=== PATIENT | male | born 1975 | race Caucasian/White ===

== ENCOUNTER → 2019-01-03 07:52 | Outpatient (CLI) | payer OTHER, SELFPAY ==
[2019-01-03 07:47] VITALS: BMI 28.5
--- NOTE | 2019-01-03 07:54 | RAD_ITS ---
STUDY: X-RAY - LUMBAR SPINE REASON FOR EXAM: Male, 43 years old. injury last thursday, lower back pain w/some numbness in leg TECHNIQUE: 5 view(s) of the lumbar spine were obtained. COMPARISON: November 01, 2014 FINDINGS: Normal lumbar lordosis. There is multilevel endplate spondylosis of the lumbar vertebrae. There is multi-level degenerative disc disease with multi-level disc space narrowing. The soft tissue structures are unremarkable. RAD/L/S Spine Min 4 Views IMPRESSION: Degenerative changes of the spine. Electronically Signed: Armando Murrell MD at 8:18 EDT Tel , Service support ,
== END ==
PROVIDERS: Family Provider Family Medicine; PCP Family Medicine; Referring Provider Physician Assistant Surgical; Visit Provider Physician Assistant Surgical
DX: S39.012A Strain of muscle, fascia and tendon of lower back, initial encounter (principal); M54.16 Radiculopathy, lumbar region
CPT/HCPCS: 72110

== ENCOUNTER → 2019-01-08 08:48 | Outpatient (CLI) | payer OTHER, SELFPAY ==
[2019-01-04 08:35] VITALS: BMI 29.7
--- NOTE | 2019-01-08 08:52 | MRI_ITS ---
STUDY: MRI LUMBAR SPINE WITHOUT CONTRAST REASON FOR EXAM: Male, 43 years old. low back pain R leg pain after tripping backwards at work 12/29/18 TECHNIQUE: Standardized fat and water weighted pulse sequences were obtained in the sagittal and axial planes. COMPARISON: CR Lumbar Spine Jan 03 2019 FINDINGS: T12-L1: Normal endplates. Normal disc height, hydration and morphology. Normal bilateral facet joints. Normal central canal and bilateral lateral recesses. Normal bilateral intervertebral neural foramina. Normal lumbar lordosis. There is no substantial scoliosis. L1-2: Normal endplates. Normal disc height, hydration and morphology. Normal bilateral facet joints. Normal central canal and bilateral lateral recesses. Normal bilateral intervertebral neural foramina. L2-3: Normal endplates. Normal disc height, hydration and morphology. Normal bilateral facet joints. Normal central canal and bilateral lateral recesses. Normal bilateral intervertebral neural foramina. L3-4: Normal endplates. Normal disc height, hydration and morphology. Normal bilateral facet joints. Normal central canal and bilateral lateral recesses. Normal bilateral intervertebral neural foramina. L4-5: There is minimal disc space narrowing and endplate spondylosis. There is no significant disc herniation, central canal or foraminal stenosis. L5-S1: There is moderate disc space narrowing and endplates spondylosis. There is a mild disc osteophyte complex with posterior annular fissure and mild facet arthropathy without significant central canal stenosis. There is mild bilateral foraminal stenosis. Normal visualized sacral ala. Normal visualized paraspinous soft tissue structures. MRI/Spine Lumbar (Routine) IMPRESSION: L5/S1: Mild bilateral foraminal stenosis. Electronically Signed: Armando Murrell MD at 9:02 EDT Tel , Service support ,
== END ==
PROVIDERS: Family Provider Family Medicine; PCP Family Medicine; Referring Provider Physician Assistant Surgical; Visit Provider Physician Assistant Surgical
DX: M54.16 Radiculopathy, lumbar region (principal); S39.012A Strain of muscle, fascia and tendon of lower back, initial encounter; X58.XXXA Exposure to other specified factors, initial encounter; Y93.9 Activity, unspecified; Y92.9 Unspecified place or not applicable; Y99.9 Unspecified external cause status
CPT/HCPCS: 72148

== ENCOUNTER 2019-01-17 07:30 | Outpatient (RCR) | payer OTHER, SELFPAY ==
[2019-01-03 07:47] VITALS: BMI 28.5
--- NOTE | 2019-01-03 11:28 | HP.PTEVAL ---
Patient's Visit Information JOSUÉ ORDOÑEZ is a 43 year old M referred to Physical Therapy by JOSE Verduzco with a diagnosis of Lumbar Strain, Radiculopathy. Date of Evaluation: 01/03/19 Physical Therapist: Allegra Valenzuela DPT - Visit Plan Frequency: 2-3x /Week Duration: 2 Weeks Plan: Neutral Spine- Postural education-centralization- modalities. 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 Starting that night the right leg started to hurt and traveled to his back. Now the right leg is numb when he sits for to long. Feels the back pain is progressively worse but the leg pain is better. Had x-rays today- did not give him any medication to take. Can return to work tomorrow with lots of restrictions. Patient reports his back feels like someone is in their twisting it. Worst: 07/28 Agg: sitting, standing, laying down. Eases: laying on his belly or getting up Best: 04/27. Describes the pain as twisting and if he does something sudden he feels a sharp pain. Getting dressed is the most difficult and his put his socks and shoes on. He has chrones so can't take a steroid dose pack. Sleep: couple of hours- gets up and goes downstairs into the reclyner- can sit for about 30 min then he needs to get up and move. 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 Does wear a back belt. Has been there 2 years. Has never really had low back problems. PMHx: chrones, hernia repair repair 1997. Meds: Gabapentin (restless leg), Lomodel - Objective Posture: poor in sitting and standing- moves around a lot and does not ever get comfortable. Gait: antalgic- leans to the left to get off the right LE- slow taylor. ROM: Lumbar: decreased by 90% in all directions due to pain, Hip/Knee/Ankle: WNL. Strength: Right Ankle: 4-/5, PF: 4-/5, Knee: 4-/5, Hip: 4/5 throughout- Core: poor. Flex: HS: severe, Gastroc: severe. Special Test: dural signs on right positive. Sensation: WNL. Assessment challenging due to signficant pain - Goals Goal 1:: Patient will be I with HEP and progression Goal Time Frame: 4-6 Weeks Goal 2:: Patient will report 0/10 pain for 1 week Goal Time Frame: 4-6 Weeks Goal 3:: Patient will maintain proper posture t/o tx session to demo increased core s/s. Goal Time Frame: 4-6 Weeks - Rehabilitation Potential Physical Therapy Diagnosis: Patient presents with hypomobility- he has decreased ROM, strength and muscular endurance leading to abnormal gait pattern and decreased ability to perform ADL's. Rehabilitation Potential: Poor - Anticipated Interventions Therapeutic Exercise to Include: Strength training, Endurance training, Body mechanics, Postural training, Flexibilty training, Gait and locomotor training, Passive ROM, Active ROM, Dynamic Lumbar Stabilization, Josse Exercises For the Purpose of:: To improve muscle performance and motor function TENS: Yes Cryotherapy (ice pack, ice massage): Yes Thermo therapy (hot pack): Yes Ultrasound (thermal/non thermal): Yes Thank you for the opportunity to evaluate your patient. For Medicare and Medicare HMO plans, please review the plan of care and approve it. It will need to be FAXED BACK to us at [phone] for Medicare purposes. For Medicare only, by signing this I certify the plan of care. Please let me know if there are questions or concerns regarding this plan of care. Physician Signature: Date:
--- NOTE | 2019-02-18 08:29 | HP.PT.NRP ---
HP - Discharge Summary (1) - Patient Information JOSUÉ ORDOÑEZ was seen in my office for initial evaluation on 01/03/19. The following Plan of Care was established for this patient: Initial Frequency: 2-3x /Week Initial Duration: 2 Weeks - Anticipated Interventions Therapeutic Exercise to Include: Strength training, Endurance training, Body mechanics, Postural training, Flexibilty training, Gait and locomotor training, Passive ROM, Active ROM, Dynamic Lumbar Stabilization, Josse Exercises For the Purpose of:: To improve muscle performance and motor function TENS: Yes Cryotherapy (ice pack, ice massage): Yes Thermo therapy (hot pack): Yes Ultrasound (thermal/non thermal): Yes This patient was last seen in our office . Pertinent comments regarding their Physical therapy will appear below: Patient has not attended physical therapy in over 30 days and is appropriate for discharge. Follow up with MD as appropriate. At this point I will be discontinuing this patient from physical therapy. I would be happy to see this patient again in the future if found appropriate by the physician. Thank you! Allegra Valenzuela DPT
== END 2019-01-17 19:00 | disposition home or self-care (01) ==
LOC: PT 07:30
PROVIDERS: Family Provider Family Medicine; PCP Family Medicine; Referring Provider Physician Assistant; Visit Provider Physician Assistant
DX: S39.012D Strain of muscle, fascia and tendon of lower back, subsequent encounter (principal); M54.16 Radiculopathy, lumbar region
CPT/HCPCS: 97035; 97110; 97162

== ENCOUNTER → 2020-02-15 10:56 | Outpatient (CLI) | payer OTHER, BC, SELFPAY ==
[2019-03-17 16:45] VITALS: BMI 27.3
--- NOTE | 2020-02-15 11:07 | MRI_ITS ---
STUDY: MRI LEFT KNEE REASON FOR EXAM: Medial knee pain, injury 12/08/2019. TECHNIQUE: Standardized fat and water weighted pulse sequences were obtained in all 3 orthogonal planes. COMPARISON: None. FINDINGS: There may be a very small vertical tear of the inferior articular surface of the posterior horn of the medial meniscus, identified only on a single slice (proton density sagittal image 13). Normal hyaline cartilage of the medial femorotibial compartment. Normal medial femoral condyle and tibial plateau. Normal medial collateral ligamentous complex (MCL). Normal distal semimembranosus, gracilis and semitendinosus tendons. Normal lateral meniscus. Normal hyaline cartilage of the lateral femorotibial compartment. Normal lateral femoral condyle and tibial plateau. Normal proximal tibiofibular articulation. Normal lateral collateral (fibular) ligament. Normal popliteus tendon. Normal biceps femoris tendon. There is a small anterior cruciate ligament cyst (T2 coronal images 13, 14). Normal posterior cruciate ligament (PCL). Normal congruent patellofemoral articulation. Normal hyaline cartilage of the patellofemoral compartment. Normal medial and lateral patellar retinaculum. Normal visualized quadriceps tendon. Normal patellar tendon. Normal Hoffa''s fat pad. There is a small joint effusion. There is a thin medial patellar plica. There is a small lobulated ganglion cyst at the medial aspect of the distal posterior cruciate ligament (T2 sagittal image 11) measuring 0.9 cm in length. The otherwise visualized osseous structures are unremarkable. MRI/Lower Ext Joint Only (Routine) IMPRESSION: There may be a very small medial meniscal tear, identified only on a single slice. Small joint effusion. Small ganglion cyst adjacent to the distal posterior cruciate ligament. No demonstrated ligamentous sprain. Electronically Signed: Brett Scott MD at 12:00 EDT Tel , Service support ,
== END ==
PROVIDERS: PCP Family Medicine; Referring Provider Family Medicine; Visit Provider Family Medicine
DX: S83.92XA Sprain of unspecified site of left knee, initial encounter (principal); X58.XXXA Exposure to other specified factors, initial encounter; Y93.9 Activity, unspecified; Y99.9 Unspecified external cause status
CPT/HCPCS: 73721

== ENCOUNTER → 2020-06-12 14:35 | Outpatient (CLI) | payer OTHER, SELFPAY ==
[2020-06-12 14:22] VITALS: BMI 29.0
--- NOTE | 2020-06-12 14:35 | RAD_ITS ---
STUDY: X-RAY - LEFT KNEE REASON FOR EXAM: Left knee pain. TECHNIQUE: 4 view(s) of the knee. COMPARISON: None. FINDINGS: Normal visualized distal femur. Normal visualized proximal tibia and fibula. Normal proximal tibiofibular articulation. Normal medial femorotibial compartment. Normal lateral femorotibial compartment. There is very mild lateral subluxation of the patella. The soft tissue structures are unremarkable. RAD/Knee 4 or More Views IMPRESSION: Very mild lateral subluxation of the patella. Electronically Signed: Brett Scott MD at 8:22 EDT Tel , Service support ,
== END ==
LOC: HPRAD 14:35
PROVIDERS: PCP Family Medicine; Referring Provider Orthopaedic Surgery; Visit Provider Orthopaedic Surgery
DX: M25.562 Pain in left knee (principal)
CPT/HCPCS: 73564

== ENCOUNTER 2020-08-15 07:43 | Day surgery (SDC) | payer OTHER, BC, SELFPAY ==
[2020-06-12 14:22] VITALS: BMI 29.0
[2020-07-13 09:38] VITALS: BMI 29.0
[2020-08-15] VITALS (8 sets, daily range): BP systolic 99–127; BP diastolic 63–80; PULSE 58–95; RESP 16–18; TEMP 36–36.5; O2SAT 91–97; BMI 31.2
[2020-08-15] MEDS: Lactated Ringers 1,000 ML 100 ML IV ×2 (08:20→11:06)
--- NOTE | 2020-08-15 08:20 | DCINST_ITS ---
Discharge Diet: No Restrictions - Toe-touch weightbearing operative extremity, brace may be unlocked while seated 0 to 30 degrees, brace locked in extension during ambulation and at night, follow-up on Thursday for dressing change and brace adjustment with Niko Wayt, may get incision wet after that time, call with increased pain numbn Discharge Activity: May Not Drive May shower in (days): 1 Ice area for (Minutes): 20 - Every hour while awake. Weight Bearing Status: Weight bearing as tolerated Keep extremity elevated above heart level: Operative Extremity Call your doctor if your incision/area has: Continuous Slow Oozing, Sudden Increased Bleeding, Increased Pain/ Swelling, Increased Redness, Foul Smelling Discharge Call your doctor if you observe: Fever of 101 or Higher, Coldness, Increased Pain, Numbness or Tingling, Change in Color, Calf discomfort Allergies/Adverse Reactions: Allergies cortisone Allergy (Verified 08/15/20 08:18) Nausea nausea and h.a., insomnia ibuprofen Allergy (Verified 08/15/20 08:18) Swelling mushroom Allergy (Verified 08/15/20 08:18) Swelling Medications to take at Discharge gabapentin 600 mg tablet 600 mg PO TID 06/12/20 multivitamin 1 tab PO DAILY 06/12/20 Oxycodone [Oxyir] 5 mg PO Q4H PRN PRN 5 Days #60 tablet 08/15/20 The following prescriptions were given: Oxycodone [Oxyir] 5 mg PO Q4H PRN PRN 5 Days #60 tablet PRN Reason: Pain Transmission Status: Sent to [facility] Primary Care Physician: Behzad Solares III, MD [Primary Care Provider] - Test Results: Test results from this visit will be discussed in further detail at your follow- up appointment, if applicable. Please Follow Up With: Jess Bartlett, DO - [phone]
--- NOTE | 2020-08-15 08:20 | PCM.OPRPT ---
Report of Operation Date of Procedure: 08/15/20 Pre-Operative Diagnosis: left acl tear, medial meniscus tear Post-Operative Diagnosis: same Surgery/Procedure Performed:: salk, acl reconstruction with graftlink allograft leadership program internship: John Marquez Type of Anesthesia:: General Anesthesiologist: Raul Miranda Specimen's removed: tt- 65 min Estimated Blood Loss (mL): min Fluids Replaced: 1000ml lr Description of Procedure: Preop note Patient is a 44-year-old male who sustained a hyperextension injury to his left knee with continued pain and instability despite conservative treatment including bracing and therapy. Patient states left knee is quite unstable and painful when it and it feels like it gives out on him. On physical exam in our office we noted that he had a positive Daly's and a positive drawer anterior drawer. His MRI shows a intrasubstance medial meniscus tear as well as a questionable ACL tear combined with his physical exam is most likely an ACL tear and there is a couple of the cuts on the anterior aspect the lateral aspect where it appears at the mid the ACL has pulled off of the tibial insertion and healed and with some scar tissue. All this was discussed with the family. Risk benefits and alternatives were discussed with family. Risk include but not limited to blood loss, blood clot, infection, neurovascular G, failure procedure, loss of life and loss of limb. Patient aware like proceed with left knee arthroscopy appears in acute Operative note Patient seen and examined preoperative holding area left knee was marked. Patient brought to the operating placed upon the operating table. 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 We did a preop evaluation of his left knee a positive pivot shift was grossly abnormal. The left leg was prepared in standard technique after tourniquet was placed on his upper thigh. All bony promises well-padded SCDs placed on his contralateral limb. We marked our anterior lateral anteromedial portal placement. Began our diagnostic arthroscopy to confirm her physical exam diagnosis. Pain anterior lateral portal with 11 blade may visualize patellofemoral joint which was unremarkable with the moved to the medial joint line where we created anteromedial portal under direct visualization. We probed the medial meniscus which was intact and stable probing. The PCL was present in the notch the ACL had a redundant appearance to me and when he extended the knee there is obvious Stevens tearing and skin cystic and scarring at the tibial footprint. The lateral meniscus was intact and stable probing the lateral femoral condyle lateral tibial plateau were all stable and intact to probing. We then performed a drawer with him visualizing the ACL while we did a drawer and the drop was read again the ACL was torn and had actually scarred into the roof with anterior medial bundle had scarred into the roof of the notch. His posterior labral tear and also torn off of the posterior aspect. We probed the unstable insertion and noted that the entire tendon was loose at its insertion which was made more obvious especially when you extended the knee that there was redundant ACL which balled up with extension of the knee consistent with a his instability on physical exam. We then gently debrided back the ACL and prepared the graft link allograft on the back table using standard technique. We measured it to be a 10 we drilled an inside-out femoral tunnel in standard technique ensuring that we had good back wall which we did making sure that the tunnel was made with a knife with the knee at 90 degrees of flexion. We then placed our suture through the tunnel. Irrigate any bony debris we then made our tibial tunnel after placing a fast pass in the medial to portal. We then placed our drill about 2530 mm on the tibial side leaving a footprint of the tibial sided ACL out. It was torn this left some remnant tissues for proprioception. We then then did a also a flip cutter 10 back about 30. We then brought the graft on the back table after we irrigated the knee with copious amounts of sterile saline to remove any bony debris. The graft was wrapped brought through the medial passport the femoral tunnel and the button was flipped and palpated on the lateral femoral cortex we then brought the graft about 18 mm into the tunnel and then were able to bring the graft through the tibial tunnel in standard technique as well. We cycled the graft about 20 times. We then secured the posterior the button onto the tibial aspect with a posterior maintaining a posterior drawer to the tibia. We then flexed the knee elevated were able to bring the graft little bit more into the femoral tunnel and the femoral side as well. Again we then irrigated The knee with copious muscle sterile saline. All sutures were truncated in standard technique after we did on the tibial side over so not over top of the button. The incision on the tibial side was closed with 3-0 Vicryl and a running 4 Monocryl the portals were closed with interrupted nylon and the distal lateral femoral cortex incision was closed with 3-0 Monocryl 3-0 Vicryl in a running 4 Monocryl. Sterile dressings were applied tourniquet was deflated for total working time of 65 minutes. Brace was applied to the left lower extremity 0-34 until Thursday. patient taught procedure well no complication transfer recovery room stable condition. Dr. Dougherty Toe-touch weightbearing left leg for 2 weeks Follow-up on Thursday with Adithya Niko landry for dressing change and brace adjustment Pharmacy has prescriptions this We will discuss pictures in 2 weeks Call with increased pain numbness tingling further issues arise Dragon disclaimer This note was generated with [employer] dictation software. It may contain incorrect words, spelling, and punctuation that were not noted in checking the note before signing.
[2020-08-15] MEDS: Cefazolin 2 GM in 0.9% Normal Saline 100 ML IV (08:44)
--- NOTE | 2020-08-15 09:00 | HP_ITS ---
I have re-examined the patient. There are no clinical changes since date of exam. Intake Vital Signs 07/13/20 BMI 29.0 Intake Visit Reasons: left knee Accompanied by: Spouse Is patient in pain?: Yes Pain scale (1-10): 3 Allergies cortisone Allergy (Verified 07/13/20 09:41) Nausea ibuprofen Allergy (Verified 07/13/20 09:41) Swelling mushroom Allergy (Verified 07/13/20 09:41) Swelling Medications DiphenhydrAMINE [Benadryl] 25 mg PO BID PRN PRN 02/22/17 [History Confirmed 07/13/20] gabapentin 600 mg tablet 600 mg PO TID 06/12/20 [History Confirmed 07/13/20] multivitamin 1 tab PO DAILY 06/12/20 [History Confirmed 07/13/20] [facility] Medical History (Updated 06/12/20 @ 14:52 by Mari Rincon) Acute hemorrhoid (Acute) Back pain (Acute) Crohn disease (Acute) HTN (hypertension) (Chronic) Surgical History (Updated 06/12/20 @ 14:31 by Mari Rincon) History of hernia repair (Acute) Social History (Updated 07/13/20 @ 11:[address] Jess Bartlett, ) adopted: Yes household members: spouse, children number of children: 1 current occupational status: employed Smoking Status: Former smoker alcohol intake: never what type of physical activity do you participate in: none do you feel safe at home: Yes HPI left knee: Surgical H&P: Yes Details: Parts of this documentation were recorded by a scribe, this documentation accurately reflects the service provided and the decisions made by me, Dr. Jess Bartlett DO 07/13/20 0934. JOSUÉ ORDOÑEZ is a 44 year old M here today for to discuss surgery for his left knee. Patient has been dealing with his knee pain since November of 2019. is here in the office with him today. Pain is rated 3/10 from the pain scale. Patient states as long as he is wearing his brace, pain is somewhat controlled. But if he goes without wearing his brace, his left knee will give out. Patient has been taking gabapentin for his RLS and for back pain. Denies taking tylenol for pain relief. Ortho Exam Left Knee Contralateral Normal: Yes Homans Sign: No Examination: Yes med jt line tenderness Stability: 1+: Anterior Drawer, 1+: Daly Assessment & Plan Plan Reviewed the pre-operative plans with the patient. Risks and benefits of the procedure were fully explained, including but not limited to infection, neurovascular injury, continued pain, arthritis, stiffness, need for further surgery, re-injury, DVT, PE, general risks of anesthesia, and loss of limb or life. The patient understands all the risks and does wish to proceed with written consent. discussed that he has laxity in acl ligament on exam and pos mcmurrays, we will evaluate acl at time of surgery to determine if deficient and needs reconstruction as patient having instability with pain medially when knee gives out and has pos lachmans/ant drawer. We discussed the current risk associated COVID-19. While it is understood that there is a community spread of COVID 19 the risk of seven COVID-19 while at [facility] is very low, however, the risk cannot be completely mitigated because of the community spread of the disease. We discussed in detail the risk of exposure to and or potential harm posed by the COVID-19 virus with having a surgery/procedure at this time versus the risk of delaying the surgery/procedure. Is not possible to know either the risk of delaying the surgery procedure or chance of getting an infection with perfect accuracy, but a joint decision was made to proceed at this time with a schedule surgery/procedure as indicated on the consent form. Patient was notified that we will need to comply with any screening or testing [facility] wishes to perform or that surgery may be delayed for any positive results. Coding Level of Care Code Off vis,est,level 4
[2020-08-15] MEDS: Epinephrine (1 mg/ml) 1 MG/ML VIAL (09:04)
[2020-08-15] MEDS: Mupirocin Ointment 22gm Tube 1 APPLIC (09:04)
[2020-08-15] MEDS: HYDROcodone Bitartrate/Apap 5/325 Tablet PO (12:25)
== END 2020-08-15 13:45 | disposition home or self-care (01) ==
LOC: SDC 07:43 → AC 07:43
PROVIDERS: Anesthesiology; PCP Family Medicine; Referring Provider Orthopaedic Surgery; Visit Provider Orthopaedic Surgery
PROC: (CPT 29888; principal; 2020-08-15 09:15)
DX: S83.512A Sprain of anterior cruciate ligament of left knee, initial encounter (principal); X58.XXXA Exposure to other specified factors, initial encounter; Y93.9 Activity, unspecified; Y92.9 Unspecified place or not applicable; Y99.9 Unspecified external cause status; Z20.828 Contact with and (suspected) exposure to other viral communicable diseases; I10 Essential (primary) hypertension; K50.90 Crohn's disease, unspecified, without complications; G25.81 Restless legs syndrome; Z87.891 Personal history of nicotine dependence
CPT/HCPCS: 01400; 29888; 64447; 87635; C1713; C9803; J7120; J2405; U0003

== ENCOUNTER → 2020-08-28 10:49 | Outpatient (CLI) | payer OTHER, BC, SELFPAY ==
[2020-08-24 11:59] VITALS: BMI 29.0
--- NOTE | 2020-08-28 10:50 | VDLE_ITS ---
Reason For Study: Pain Procedure LEFT This is a venous duplex using B-mode, color GSV is normal. flow and spectral Doppler. CFV is compressible, spontaneous, phasic, Exam performed in department. competent, and demonstrates normal A preliminary report was called and/or faxed augmentation. to Brenda @ [facility] office. FV is compressible, spontaneous, phasic, competent and demonstrates normal augmentation. POP V is compressible, spontaneous, phasic, competent and demonstrates normal augmentation. T/P Trunk is compressible. PTV is compressible. LT PerV is compressible. Acute deep vein thrombosis is noted in the left GastrocV and SoleusV. Interpretation Summary Acute deep venous thrombosis left gastrocnemius and soleus veins. Patent and compressible left great saphenous vein Ordering Physician: Jess Bartlett Referring Physician: JOSELITO Solares M.D. Performed By: Pati Mckay RVT
== END ==
PROVIDERS: PCP Family Medicine; Referring Provider Orthopaedic Surgery; Visit Provider Orthopaedic Surgery
DX: M79.662 Pain in left lower leg (principal)
CPT/HCPCS: 93971

== ENCOUNTER → 2020-10-10 13:46 | Outpatient (CLI) | payer OTHER, SELFPAY ==
--- NOTE | 2020-10-10 13:52 | VDLE_ITS ---
Reason For Study: DVT Procedure LEFT This is a venous duplex using B-mode, color GSV is normal. flow and spectral Doppler. CFV is compressible, spontaneous, phasic, Exam performed in department. competent, and demonstrates normal Improvement as compared to 08/28/2020. augmentation. A preliminary report was called and/or faxed FV is compressible, spontaneous, phasic, to Tri. competent and demonstrates normal augmentation. POP V is compressible, spontaneous, phasic, competent and demonstrates normal augmentation. T/P Trunk is compressible. PTV is compressible. LT PerV is compressible. Left GastrocV is dilated and partially compressible with minimal venous flow noted. Left SoleusV is compressible. Interpretation Summary Deep venous thrombosis left gastocnemius vein with improvement and resolution of left soleus vein deep venous thrombosis. No evidence for proximal progression since 09/07/20. Patent,compressible left great saphenous vein. Ordering Physician: Jess Bartlett Referring Physician: JOSELITO Solares M.D. Performed By: Pati Mckay RVT
== END ==
PROVIDERS: PCP Family Medicine; Visit Provider Orthopaedic Surgery
DX: I82.462 Acute embolism and thrombosis of left calf muscular vein (principal); Z47.89 Encounter for other orthopedic aftercare
CPT/HCPCS: 93971

== ENCOUNTER → 2020-11-05 10:57 | Outpatient (CLI) | payer OTHER, BC, SELFPAY ==
[2020-08-24 11:59] VITALS: BMI 29.0
--- NOTE | 2020-11-05 11:00 | VDLE_ITS ---
Reason For Study: Pain, Swelling Procedure LEFT This is a venous duplex using B-mode, color GSV is normal. flow and spectral Doppler. CFV is compressible, spontaneous, phasic, Exam performed in department. competent, and demonstrates normal Compared to 10/10/2020. augmentation. A preliminary report was called and/or faxed FV is compressible, spontaneous, phasic, to Kielt. competent and demonstrates normal augmentation. POP V is compressible, spontaneous, phasic, competent and demonstrates normal augmentation. T/P Trunk is compressible. PTV is compressible. LT PerV is compressible. Left GatrocV is partially noncompressible with minimal venous flow noted. Interpretation Summary Chronic deep venous thrombosis left gastrocnemius vein. Not resolved from the previous examination of October 10, 2020. Patent and compressible left great saphenous vein. Ordering Physician: John Marquez Referring Physician: JOSELITO Solares M.D. Performed By: Pati Mckay RVT
== END ==
PROVIDERS: PCP Family Medicine; Referring Provider Physician Assistant; Visit Provider Physician Assistant
DX: I82.562 Chronic embolism and thrombosis of left calf muscular vein (principal); M79.662 Pain in left lower leg; M79.89 Other specified soft tissue disorders
CPT/HCPCS: 93971

== ENCOUNTER 2021-02-20 15:30 | Outpatient (RCR) | payer OTHER, BC, SELFPAY ==
[2020-08-24 11:59] VITALS: BMI 29.0
--- NOTE | 2020-09-25 12:23 | HP.PTEVAL ---
Patient's Visit Information JOSUÉ ORDOÑEZ is a 45 year old M referred to Physical Therapy by Dr. Jess Bartlett, with a diagnosis of LEFT MEDIAL MENISCUS TEAR. Date of Evaluation: 09/25/20 Physical Therapist: Paul Zuniga PT, Cert MDT, OCS - Visit Plan Frequency: 3x /Week Duration: 3 Months Plan: S/P ACL RECONSTRUCTION 08/15/20 S/P 7 WEEKS -09/26. SEE GUIDELINES FOR ACL RECONSTRUCTION. PATIENT IS WBAT LLE WITH BRACE AND CRUTCHES NEEDED. INTAILLY PROGRESS WITH ROM ,STRENGTHENING QUADS/HAMS/HIP PER GUIDLINES TO FES QUAD,GAIT /BALANCE - Subjective This 45 y/o male presents to physical therapy with left meniscus repair. Patient underwent s/p Left ACL reconstruction with allograt on 08/15/20 d/c with crutches 3 weeks NWB LLE with TROM brace locked. Patient developed DVT left calf placed on blood thinner and hold off on therapy. Pateint was WBAT LLE with brace unlocked with rest 08/28/20.Patient uses crutches as akil and conts to use brace locked with gait. .Patient seen DR granados. Patient intially injuried knee 12/08/19 at worked [email or web address] backewards and slipped on skid and hyperextended knee with knee giving way .Patient see 2 months thought in would get better.MEDS _percocet Patient seen Dr Herrera and recommended therapy 3 months PT and pain wasnt getting better thus had MRI. Patient then was referred to DR Thrasher April then had surgery . Patient has limitations with ADLS' and housework tasks and unable to RTW. Patient does stairs one step at a time. Patient has difficulty sleeping. Patient condtion affects QOL. Patient goal is to RTW. VOCATION: [employer]. SOCAIL: - Pain Left Knee Pain Intensity (Out of 10): 2 Pain Intensity Range: 10 - Objective POSTURE: WFL with brace and crutches. PALPATION: unremarkable. EDEMA: joint line 41.0 cm2. GAIT: ambulates with knee brace unLocked IN dept no brace. QUAD 6 MID PATELLA : 48 CM. AROM: 5-60 degrees supine knee flexion. MMT: NT KNEE ,HIP 4-/5 EXTNSION,ABDUCTION,ADDUCTION 3+/5. PATELLA MOBILITY: MILD/MOD TIGHT - Goals Goal 1:: I with HEP per Guidlines for ACL Goal Time Frame: 12-16 Weeks Goal 2:: Patient to normilize gait pattern Goal Time Frame: 8-12 Weeks Goal 3:: Patient to increase strength of quads/hams/hip 4/5 to improve function and RTW Goal Time Frame: 12-16 Weeks Goal 4:: Patient to increase AROM supine knee flexion 0-130 degrees to improve function and stairs Goal Time Frame: 12-16 Weeks Goal 5:: Patient to improve LFES score by 15 points or > to improve QOL and RTW. Goal Time Frame: 12-16 Weeks Goal 6:: Pateint be able to RTW and ADLS' with min to no limitaions. Goal Time Frame: 12-16 Weeks - Rehabilitation Potential Physical Therapy Diagnosis: This patient underwent ACL reconstruction with allograft with currenr impiarments with decrease ROM,strength,gait ,proprioception and unable to RTW thus will benifit from skilled PT services to address these impairments Rehabilitation Potential: Good - Anticipated Interventions Patient/Client Instruction: Educate patient on: Condition, Plan of Care For the Purpose of:: To decrease pain, To decrease swelling/inflammation, To improve muscle performance and motor function, To improve ability to perform ADL's, To increase tolerance to activity/condition/position, To improve ability of physical actions for home/community/work/leisure, To improve health of tissue, To decrease soft tissue restriction, To increase flexibility/ROM, To improve balance, To improve ability to perform tasks related to life management Therapeutic Exercise to Include: Strength training, Endurance training, Balance training, Gait and locomotor training, Passive ROM, Active ROM Comment: SEE GUIDELINES FOR ACL RECONSTRUCTION For the Purpose of:: To decrease pain, To increase ROM, To improve muscle performance and motor function, To improve ability to perform ADL's, To increase tolerance to activity/condition/position, To improve ability of physical actions for home/community/work/leisure, To improve health of tissue, To decrease soft tissue restriction, To increase flexibility/ROM, To improve endurance, To reduce risk of recurrence, To improve ability to perform tasks related to life management Functional electric stimulation: Yes IF ES: Yes Cryotherapy (ice pack, ice massage): Yes Thermo therapy (hot pack): Yes For the Purpose of:: To decrease pain, To decrease swelling/inflammation, To increase ROM, To improve nutrient delivery to tissue, To increase oxygenation perfusion, To improve health of tissue, To decrease soft tissue restriction Thank you for the opportunity to evaluate your patient. For Medicare and Medicare HMO plans, please review the plan of care and approve it. It will need to be FAXED BACK to us at [phone] for Medicare purposes. For Medicare only, by signing this I certify the plan of care. Please let me know if there are questions or concerns regarding this plan of care. Physician Signature: Date:
--- NOTE | 2021-03-25 13:40 | HP.PT.NRP ---
JOSUÉ ORDOÑEZ was seen in my office for initial evaluation on 09/25/20. The following Plan of Care was established for this patient: Initial Frequency: 3x /Week Initial Duration: 3 Months Patient/Client Instruction: Educate patient on: Condition, Plan of Care For the Purpose of:: To decrease pain, To decrease swelling/inflammation, To improve muscle performance and motor function, To improve ability to perform ADL's, To increase tolerance to activity/condition/position, To improve ability of physical actions for home/community/work/leisure, To improve health of tissue, To decrease soft tissue restriction, To increase flexibility/ROM, To improve balance, To improve ability to perform tasks related to life management Therapeutic Exercise to Include: Strength training, Endurance training, Balance training, Gait and locomotor training, Passive ROM, Active ROM For the Purpose of:: To decrease pain, To increase ROM, To improve muscle performance and motor function, To improve ability to perform ADL's, To increase tolerance to activity/condition/position, To improve ability of physical actions for home/community/work/leisure, To improve health of tissue, To decrease soft tissue restriction, To increase flexibility/ROM, To improve endurance, To reduce risk of recurrence, To improve ability to perform tasks related to life management Functional electric stimulation: Yes IF ES: Yes Cryotherapy (ice pack, ice massage): Yes Thermo therapy (hot pack): Yes For the Purpose of:: To decrease pain, To decrease swelling/inflammation, To increase ROM, To improve nutrient delivery to tissue, To increase oxygenation perfusion, To improve health of tissue, To decrease soft tissue restriction This patient was last seen in our office . Pertinent comments regarding their Physical therapy will appear below: Patient seen for ACL reconstruction doing well thus d/c. At this point I will be discontinuing this patient from physical therapy. I would be happy to see this patient again in the future if found appropriate by the physician. Thank you! Paul Zuniga, PT, Cert MDT, OCS
== END 2021-02-20 19:00 | disposition home or self-care (01) ==
LOC: PT 15:30
PROVIDERS: PCP Family Medicine; Referring Provider Orthopaedic Surgery; Visit Provider Orthopaedic Surgery
DX: S83.242D Other tear of medial meniscus, current injury, left knee, subsequent encounter (principal)
CPT/HCPCS: 97110; 97161

== ENCOUNTER → 2021-02-27 15:39 | Outpatient (CLI) | payer OTHER, SELFPAY ==
[2020-08-24 11:59] VITALS: BMI 29.0
--- NOTE | 2021-02-27 15:42 | VDLE_ITS ---
Reason For Study: PAIN Procedure LEFT Exam performed in department. GSV is normal. CFV is compressible, spontaneous, phasic, competent, and demonstrates normal augmentation. FV is compressible, spontaneous, phasic, competent and demonstrates normal augmentation. POP V is compressible, spontaneous, phasic, competent and demonstrates normal augmentation. PTV is compressible. LT PerV is compressible. LT Gastrov V is partially noncompressible with impaired venous flow. VL/Venous Duplex US, Unilateral Interpretation Summary DVT left gastroc with decreased flow noted. Ordering Physician: Nikko Ventura Referring Physician: ELLA MURRELLBUDeandra Performed By: Patricia Cr, SHABNAM, RVT
== END ==
PROVIDERS: PCP Family Medicine; Referring Provider Surgery Vascular Surgery; Visit Provider Surgery Vascular Surgery
DX: M79.89 Other specified soft tissue disorders (principal); M79.606 Pain in leg, unspecified
CPT/HCPCS: 93971

== ENCOUNTER 2021-05-27 14:00 | Outpatient (RCR) | payer OTHER, SELFPAY ==
[2021-03-11 08:02] VITALS: BMI 29.0
[2021-04-25 14:59] VITALS: BMI 29.0
--- NOTE | 2021-04-26 08:53 | HP.PTEVAL_ITS ---
Patient's Visit Information JOSUÉ ORDOÑEZ is a 45 year old M referred to Physical Therapy by Dr. Jess Bartlett, with a diagnosis of OTHER MENISCUS TEAR LEFT KNEE,SPRAINED OF LEFT KNEE. Date of Evaluation: 04/26/21 Physical Therapist: Paul Zuniga, PT, Cert MDT, OCS - Visit Plan Frequency: 2-3x /Week Duration: 4-6 Weeks Plan: ACL RECONSTRUCTION. PT INTERVENTIONS STRETCHING QUADS/HAMS,PRE'S QUADS/HAMS/HIP,FUNCTIONAL STRENGTHENING AND PROPRIOCEPTION - Subjective This 44 y/o male presents to physical therapy with left ACL reconstruction with allograft on 08/15/20. Patient was initially in Rehab started with crutches and NWB and progressed with WB status to full WB without crutches. Patient inquired knee 12/08/20 at work pulling pallet papo backwards and slipped on skid and hyperextended knee gave way . Tried PT prior to surgery was getting worse and had MRI showed tear by Dr. Bartlett. Patient had several complications DVT in left pain and swelling whiched slowed progress. Patient had PT at for ~ 3months . Patient return to need to work on strengthening. 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 Patient denies paresthesia except at night Patient has difficulty with squatting ,kneeling and sitting for extended period. Pain with working long hours work ~10hrs. Patient ACL reconstruction impairs QOL and job demands and housework. SOCIAL: - Pain Left Knee Pain Intensity (Out of 10): 1 Pain Intensity Range: 10 - Objective POSTURE: WFL. GAIT: reciprocal pattern mild decrease stance time. NEURO: intact. PALAPTION: unremarkable. EDEMA: absent. QUAD: atrophied. PROPRIOCEPTION: mild impaired. FLEXABLITY: hams mild tight. AROM: supine knee flexion 2-125 degrees. MMT: quads 4-/5,hamstrings 4/5,hip abduction 4/5 ,hip adduction 4-/5,hip extension 4-/5,ankle 4/5. STAIRS: alternating with no rails - Goals Goal 1:: I with gym program Goal Time Frame: 6-8 Weeks Goal 2:: Improve AROM knee flexion 0-130 degrees or > to improve function and stairs/job demnads Goal Time Frame: 6-8 Weeks Goal 3:: Patient be able to knee ,squat and job demands without limitations Goal Time Frame: 6-8 Weeks Goal 4:: Improve quads strength 4+/5 to improve function with job demands and housework tasks. Goal Time Frame: 4-6 Weeks Goal 5:: Patient to improve LFES score by 5 points or > to improve function and QOL /job demands Goal Time Frame: 6-8 Weeks - Rehabilitation Potential Physical Therapy Diagnosis: This patient had ACL reconstruction with allograft on 08/15/20 with decrease ROM, proprioception and quad strength thus benefit from skilled PT Rehabilitation Potential: Good - Anticipated Interventions Patient/Client Instruction: Educate patient on: Condition, Plan of Care For the Purpose of:: To decrease pain, To increase ROM, To improve muscle performance and motor function, To improve ability to perform ADL's, To increase tolerance to activity/condition/position, To improve performance and independence with ADL's, To improve health of tissue, To decrease soft tissue restriction, To increase flexibility/ROM, To reduce risk of recurrence, To improve ability to perform tasks related to life management Therapeutic Exercise to Include: Strength training, Endurance training, Balance training, Flexibilty training, Passive ROM, Active ROM Comment: PRE'S quads/hams/hip For the Purpose of:: To decrease pain, To increase ROM, To improve muscle performance and motor function, To improve ability to perform ADL's, To increase tolerance to activity/condition/position, To improve ability of physical actions for home/community/work/leisure, To improve health of tissue, To decrease soft tissue restriction, To increase flexibility/ROM, To improve balance, To reduce risk of recurrence, To improve ability to perform tasks related to life management Thank you for the opportunity to evaluate your patient. For Medicare and Medicare HMO plans, please review the plan of care and approve it. It will need to be FAXED BACK to us at [phone] for Medicare purposes. For Medicare only, by signing this I certify the plan of care. Please let me know if there are questions or concerns regarding this plan of care. Physician Signature: Date:
== END 2021-05-27 19:00 | disposition home or self-care (01) ==
LOC: PT 14:00
PROVIDERS: PCP Family Medicine; Referring Provider Orthopaedic Surgery; Visit Provider Orthopaedic Surgery
DX: S83.242D Other tear of medial meniscus, current injury, left knee, subsequent encounter (principal); S83.92XD Sprain of unspecified site of left knee, subsequent encounter
CPT/HCPCS: 97110; 97161

== ENCOUNTER 2021-06-03 11:25 | Outpatient (RCR) | payer OTHER, SELFPAY ==
[2021-03-11 08:02] VITALS: BMI 29.0
[2021-04-25 14:59] VITALS: BMI 29.0
--- NOTE | 2021-06-05 08:27 | HP.OTFCE_ITS ---
Floor (Occasional 1-33% of Day): 50# Floor (Frequent 34-66% of Day): 25# Floor (Constant 67-100% of Day): NA Floor PDL: Medium Knee (Occasional 1-33% of Day): 50# Knee (Frequent 34-66% of Day): 25# Knee (Constant 67-100% of Day): NA Knee PDL: Medium Waist (Occasional 1-33% of Day): 60# Waist (Frequent 34-66% of Day): 30# Waist (Constant 67-100% of Day): 12# Waist PDL: Medium Shoulder (Occasional 1-33% of Day): 50# Shoulder (Frequent 34-66% of Day): 25# Shoulder (Constant 67-100% of Day): 10# Shoulder PDL: Medium Overhead (Occasional 1-33% of Day): 45# Overhead (Frequent 34-66% of Day): 22# Overhead (Constant 67-100% of Day): 9# Overhead PDL: Medium Comments: Pt reported left knee pain at 3-01/26 with floor and knee level lifts due to this pt could not lift from theses levels on constant ability. Bending: Frequent Ability (34-66% of day) Squatting: Occasional Ability (1-33% of day) Kneeling: No Ablility (0% of day) Reaching out: Frequent Ability (34-66% of day) Reaching up: Frequent Ability (34-66% of day) Sitting: Frequent Ability (34-66% of day) Walking: Frequent Ability (34-66% of day) Standing: Frequent Ability (34-66% of day) Duration Sedentary Sedentary Light Light Light Medium Medium Medium Heavy Very Heavy Heavy Occasional (0-33% of day) Frequent (34-66% of day) Constant (67-100% of day) 10 # Negligible Negligible 15 # 8 # Negligible 20 # 10# Negli. 35 # 18 # 7 # 50 # 25 # 10 # 75 # 100 # >100 # 38 # 50 # >50 # 15 # 20 # >20 # Weight:: 75.75 kg Hand Dominance: right Medical History Including Restrictions: pt states he was in good health until he injured his knee when he slipped when pulling a pallet with a manual pallet papo that had shelves on it- pt states he was waling backwards and slipped. pt states he thought he sprained his knee. States he did report to [facility] but about two months later he was having difficulty still with his knee. Pt states his knee felt wobbly or not secure. pt states he did not have full ROM, pt states he could not bend down or get comfortable at martin. pt states he went to see the about it in December of 2019. Pt states after conservative methods failed he had sx for a left knee ACL reconstruction 2019. Pt states he had complication of blood clot and placed on blood thinner for about 7 months and currently on baby aspirin every other day. pt states he started physical therapy not until 2019. pt states he was given HEP for ROM. Pt states he underwent months of therapy but continues to struggle with ROM. pt states he is putting his hinge brace on at night to get more knee extension pain limit. pt states he has been released to full duty with no lifting restrictions but was told to use his knee brace with walking and all heavy work activities. Diagnoses: left ACL tear. left ADL reconstruction. back pain due to old back injury. Crones dx 2014 Symptoms: limited ROM. weakness. 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 pt states his current job description of team lift 200#. pt also states boxes of [employer] will indicate a one person or two person lift- 50# to lift salt bags- pt states he has difficulty squatting, kneeling and lifting. 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 Behavioral: pt was cooperative throughout the assessment. ADLS: Pt states he lives with his in a two story home- with 4 entry steps and a hand rail. pt states he has a side door he can enter if his knee is sore- pt states his bedroom is on 2nd floor and his bathroom is on main floor- pt does have bathroom on 2nd floor he can use as needed. pt states he uses a walk in shower- pt states he is IND. with bathing and dressing. pt has shower chair if needed- wheeled walker, straight cane, crutches. pt has not used this equipment in 6 months. Pt drives ind. pts does the cooking, cleaning and laundry as well as shopping and mowing the yard. pts also works for [employer] full-time 40-50 hours a week. pt states they have a boat but has not been able to go on it this year because of his knee. pt does perform his exercise daily. ROM: pt demo with use of left knee brace at -20/80 and without brace -105. pts right knee ROM is WNL 0/120. All other ROM is WNL Strength: left hip 4/5. left quad 4/5. left hamstring 4+/5. all other ROM 5/5 Right Service Person Strength Average: 103.33 Right Service Person Strength Percentile: 25% Left Service Person Strength Average: 90.00 Left Service Person Strength Percentile: 23% Right Lateral Pinch Average: 18.00 Right Lateral Pinch Percentile: 25% Left Lateral Pinch Average: 12.66 Left Lateral Pinch Percentile: 10% Right Tripod Pinch Average: 14.66 Right Tripod Pinch Percentile: 10% Left Tripod Pinch Average: 13.33 Left Tripod Pinch Percentile: 10% Comments: resting heart rate 68 Sensation: deneis Fine Motor: denies Balance: pt demo with good balance-. no noted loss of balance during assessment Bending: pt demo the ability to bend forward three times reaching at his ankles- pt reported pulling in front of his knee. pt demo the ability to bend forward three times reaching to his knee with less pulling or stretch sensation- pt demonstrated the ability to bend forward 10/10 times reported a little bit of a pull on the front of his knee cap-. pt demonstrated the ability to bend forward 10/10 times. heart rate 76 Squatting: pt demo the ability to squat 3/3, 10/10 pt unable to perform 10 times rapidly ( pt demonstrates compensatory venkatesh. as left hip adduction- pt demo wt. staying to right side). pt reported left knee 6/10 . pt can perform squatting on a occasional ability Kneeling: pt demonstrated the ability to knee one time with heavy external support- pt attempted kneel by putting left LE out in front of him, and use of external support to lower himself and raise himself from floor. pt has no ability to kneel Reaching out/up: pt demonstrated the ability to reach out/up 3/3x, 10/10x, 10/10 rapidly while standing. pt can reach out/up on a frequent ability. Walking: pt ambulated with antalgic gait pattern for 15 min. pt can ambulate on a frequent ability. Standing: pt demonstrated the ability to stand for 5 min with shifting body wt and keeping. pt can stand on a frequent ability. Sitting: pt demonstrated the ability to sit for 50 min with no apparent and expressed discomfort. pt can sit on a frequent ability. Climbing Stairs: pt demo with ascending 10 steps with a single leg step up ( right UE) and descended 10 steps with single leg down (left leg). use of one handrail. pt did demo compensatory climbing stairs but was safe Floor Lift: pt demonstrated the ability to lift 50# maximally from this level- therapist noted body wt was shifted to the right vs centered- pt demo good lifting mechanics but noted protective behavior of left LE. Knee Lift: pt demonstrated the ability to lift 60# maximally from this level- therapist noted body wt was shifted to the right vs centered- pt demo good lifting mechanics but noted protective behavior of left LE. Waist Lift: pt demonstrated the ability to lift 60# maximally from this level- therapist noted body wt was shifted to the right vs centered- pt demo good lifting mechanics but noted protective behavior of left LE. Shoulder Lift: pt demonstrated the ability to lift 50# maximally from this level- therapist noted body wt was shifted to the right vs centered- pt demo good lifting mechanics but noted protective behavior of left LE. Overhead Lift: pt demonstrated the ability to lift 45# maximally from this level- therapist noted body wt was shifted to the right vs centered- pt demo good lifting mechanics but noted protective behavior of left LE. Carryin# for 40 feet with antalgic gait pattern. Comments: pt demonstrate with protective behaviors of left LE- iE keeping wt shifted to his right, slight winging of left LE limiting knee flexion-
--- NOTE | 2021-06-05 08:27 | HP.OTFCE.D ---
FCE D/C Summary - Discharge JOSUÉ ORDOÑEZ was seen for a one time visit for an FCE on 06/03/21 and is discharged.
== END 2021-06-03 19:00 | disposition home or self-care (01) ==
LOC: OT 11:25
PROVIDERS: PCP Family Medicine; Referring Provider Physician Assistant; Visit Provider Physician Assistant
DX: Z01.89 Encounter for other specified special examinations (principal)
CPT/HCPCS: 97750

== ENCOUNTER 2021-11-05 06:30 | Outpatient (CLI) | payer OTHER, SELFPAY ==
--- NOTE | 2021-11-05 06:33 | MRI_ITS ---
STUDY: MRI LEFT KNEE REASON FOR EXAM: Left knee pain, ACL reconstruction in July 2020. TECHNIQUE: Standardized fat and water weighted pulse sequences were obtained in all 3 orthogonal planes. COMPARISON: MRI images 02/15/2020, radiographs 10/07/2021. 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 Normal hyaline cartilage of the medial femorotibial compartment. Normal medial femoral condyle and tibial plateau. Normal medial collateral ligamentous complex (MCL). Normal distal semimembranosus, gracilis and semitendinosus tendons. Normal lateral meniscus. Normal hyaline cartilage of the lateral femorotibial compartment. Normal lateral femoral condyle and tibial plateau. Normal proximal tibiofibular articulation. Normal lateral collateral (fibular) ligament. Normal popliteus tendon. Normal biceps femoris tendon. The anterior cruciate ligament graft appears intact (series 7 image 10). There is focal anterior arthrofibrosis (T2 sagittal images 13, 14) measuring approximately 1.8 cm in AP dimension. There is cystic change in the tibial bone tunnel (T2 coronal images 15-17). There is mild intrasubstance mucoid degeneration and small cyst of the posterior cruciate ligament (T2 sagittal image 13). Normal congruent patellofemoral articulation. Normal hyaline cartilage of the patellofemoral compartment. Normal medial and lateral patellar retinaculum. Normal visualized quadriceps tendon. Normal patellar tendon. There is postoperative scarring in Hoffa''s fat pad. There is a small joint effusion. The soft tissues are unremarkable. There are postoperative changes of the distal femur and proximal tibia from anterior cruciate ligament reconstruction. MRI/Lower Ext Joint Only (Routine) IMPRESSION: Intact anterior cruciate ligament graft with focal anterior arthrofibrosis (cyclops lesion). Small joint effusion. Electronically Signed: Brett Scott MD at 7:55 EST Tel , Service support ,
== END 2021-11-05 23:59 | disposition short-term general hospital (02) ==
LOC: MRI 06:33
PROVIDERS: Referring Provider Physician Assistant; Visit Provider Physician Assistant
DX: M25.562 Pain in left knee (principal); Z98.890 Other specified postprocedural states
CPT/HCPCS: 73721